=== PATIENT | female | born 1960 | race Caucasian/White ===

== ENCOUNTER 2024-03-12 08:54 | Emergency (ER) | payer MEDICARE, OTHER ==
[2024-03-12 09:02] VITALS: BMI 29.2
[2024-03-12] MEDS ORDERED: METOCLOPRAMIDE HCL INJECTION 10 MG/2 ML VIAL ONE (09:45)
[2024-03-12] MEDS ORDERED: ACETAMINOPHEN INJECTION 100 ML IVPB ONE (09:45)
[2024-03-12] MEDS: ACETAMINOPHEN 1000 MG/100 ML BAG IVPB ONE (10:02)
[2024-03-12] MEDS: SODIUM CHLORIDE 0.9% 500 ML INFUS.BAG IV ONE (10:02)
[2024-03-12] MEDS: METOCLOPRAMIDE HCL INJECTION 10 MG/2 ML VIAL IVPB ONE (10:03)
[2024-03-12 10:09] LABS: BASO % 0.4 % (0-2.0); EOS % 0.3 % (0-4.5); HEMATOCRIT 42.1 % (32.4-45.2); HEMOGLOBIN 14.7 GM/dL (10.7-15.3); LYMPH % 11.8 % (8-40); MCH 31.5 pg (25.7-33.7); MCHC 34.9 g/dl (32.0-36.0); MEAN CELL VOLUME 90.2 fl (80-96); MEAN PLT VOLUME 8.1 fl (7.5-11.1); MONO % 5.3 % (3.8-10.2); NEUT % 82.2 % (42.8-82.8); PLATELET COUNT 128 10^3/uL (134-434); RBC 4.67 M/mm3 (3.60-5.2); RDW 12.9 % (11.6-15.6); WHITE BLOOD COUNT 9.2 K/mm3 (4.0-10.0)
[2024-03-12 10:30] LABS: ALBUMIN 3.8 g/dl (3.4-5.0); BLOOD UREA NITROGEN 11.9 mg/dL (7-18); CALCIUM 9.1 mg/dL (8.5-10.1); MAGNESIUM 1.8 mg/dL (1.8-2.4)
[2024-03-12 10:33] LABS: CREATININE 0.7 mg/dL (0.55-1.3)
[2024-03-12 10:35] VITALS: TEMP 98.2
[2024-03-12 10:35] LABS: BILIRUBIN,TOTAL 0.7 mg/dL (0.2-1); TOT PROT 7.5 g/dl (6.4-8.2)
[2024-03-12 13:36] VITALS: BP 125/77; PULSE 87; RESP 18
== END 2024-03-12 13:38 | disposition home or self-care (01) ==
LOC: JER 08:54
PROC: 3E033NZ Introduction of Analgesics, Hypnotics, Sedatives into Peripheral Vein, Percutaneous Approach (ICD-10-PCS; principal; 2024-03-12)
PROC: 3E033GC Introduction of Other Therapeutic Substance into Peripheral Vein, Percutaneous Approach (ICD-10-PCS; 2024-03-12)
DX: R51.9 Headache, unspecified (principal); R19.7 Diarrhea, unspecified; R11.0 Nausea; R42 Dizziness and giddiness; Z20.822 Contact with and (suspected) exposure to COVID-19
CPT/HCPCS: 0241U-QW; 36415; 70450-TC; 80053; 83735; 85025; 93005; 93010; 96374; 96375; 99285-25; J0131

== ENCOUNTER 2024-08-01 18:11 | Emergency (ER) | payer MEDICARE, OTHER ==
[2024-08-01 18:42] VITALS: BP 157/76; PULSE 91; RESP 18; TEMP 98.5; BMI 32.0
[2024-08-01] MEDS ORDERED: ACETAMINOPHEN INJECTION 100 ML ONE (20:12)
[2024-08-01] MEDS ORDERED: DIPHTH,PERTUSS(ACELL),TET 0.5 ML DISP.SYRIN IM ONE (20:12)
[2024-08-01] MEDS: DIPHTH,PERTUSS(ACELL),TET 0.5 ML DISP.SYRIN IM ONE (20:33)
[2024-08-01] MEDS: ACETAMINOPHEN 1000 MG/100 ML BAG IVPB ONE (20:34)
[2024-08-01 20:37] LABS: BASO % 0.4 % (0-2.0); EOS % 1.4 % (0-4.5); HEMOGLOBIN 13.6 GM/dL (10.7-15.3); MCH 30.2 pg (25.7-33.7); MCHC 33.2 g/dl (32.0-36.0); MEAN CELL VOLUME 90.8 fl (80-96); MEAN PLT VOLUME 8.4 fl (7.5-11.1); MONO % 5.8 % (3.8-10.2); NEUT % 74.4 % (42.8-82.8); PLATELET COUNT 141 10^3/uL (134-434); RBC 4.51 M/mm3 (3.60-5.2); RDW 13.7 % (11.6-15.6); WHITE BLOOD COUNT 9.1 K/mm3 (4.0-10.0)
[2024-08-01 20:58] LABS: POTASSIUM 4.4 mmol/L (3.5-5.1)
[2024-08-01 21:00] LABS: CALCIUM 9.4 mg/dL (8.5-10.1)
[2024-08-01 21:01] LABS: ALBUMIN 4.1 g/dl (3.4-5.0); BLOOD UREA NITROGEN 17.2 mg/dL (7-18)
[2024-08-01 21:03] LABS: CREATININE 0.6 mg/dL (0.55-1.3)
[2024-08-01 21:05] LABS: BILIRUBIN,TOTAL 0.4 mg/dL (0.2-1)
[2024-08-02 20:06] LABS: HIV INTERPRETATION NEGATIVE (NEGATIVE)
== END 2024-08-01 22:07 | disposition home or self-care (01) ==
LOC: JER 18:11
PROC: 3E033NZ Introduction of Analgesics, Hypnotics, Sedatives into Peripheral Vein, Percutaneous Approach (ICD-10-PCS; principal; 2024-08-01)
PROC: 3E0234Z Introduction of Serum, Toxoid and Vaccine into Muscle, Percutaneous Approach (ICD-10-PCS; 2024-08-01)
DX: S00.83XA Contusion of other part of head, initial encounter (principal); S60.211A Contusion of right wrist, initial encounter; W01.198A Fall on same level from slipping, tripping and stumbling with subsequent striking against other object, initial encounter; Z23 Encounter for immunization
CPT/HCPCS: 36415; 70450-TC; 72125-TC; 73110-TC-RT-FY; 73130-TC-RT-FY; 73562-TC-RT-FY; 80053; 82962; 84484; 85025; 86803; 87389; 87522; 90471; 90715; 93005; 93010; 96374; 99285-25; J0131